=== PATIENT | female | born 2000 | race Caucasian/White ===

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

== ENCOUNTER 2022-08-29 16:08 | Outpatient (REF) | payer MEDICAID, SELFPAY ==
[2022-08-31 13:32] LABS: GC Result Negative (Negative)
[2022-08-31 13:37] LABS: Chlamydia Result Positive (Negative)
== END 2022-08-29 16:09 | disposition home or self-care (01) ==
LOC: LBN 16:08
PROVIDERS: PCP Student in an Organized Health Care Education/Training Program; Visit Provider Nurse Practitioner Women's Health
DX: Z11.3 Encounter for screening for infections with a predominantly sexual mode of transmission (principal)
CPT/HCPCS: 87491; 87591

== ENCOUNTER 2022-11-07 19:44 | Emergency (ER) | payer MEDICAID, SELFPAY ==
[2022-11-07 19:49] VITALS: BP 122/81; PULSE 109; RESP 18; TEMP 36.8; O2SAT 100
--- NOTE | 2022-11-07 20:15 | DI.CT_ITS ---
Exam(s) CT ABDOMEN PELVIS W EXAM: CT ABDOMEN PELVIS W CLINICAL HISTORY: rlq pain, eval for appe/cyst TECHNIQUE: Imaging Protocol: Axial computed tomography images with coronal and sagittal reformatted images were created and reviewed CONTRAST MATERIAL: Intravenous: Omnipaque 350 Contrast volume:100 mL Oral: No COMPARISON: CT RENAL COLIC WO CONTRAST from 02/19/2016 FINDINGS: ABDOMEN: Lung Bases: Normal where visualized. Liver: Normal density. No measurable mass. Portal, Superior Mesenteric, and Splenic Veins: Unremarkable. Gallbladder and Biliary Tract: No radiodense calculus or dilation. Pancreas: Normal density, no abnormal calcifications or inflammatory process. Spleen: Normal. Adrenals: No masses seen. Kidneys: Normal size, contour and axis. No radiodense stones or obstructive uropathy. No masses seen. Abdominal Aorta: Abdominal portion non-dilated. Bowel: No obstruction or bowel wall thickening. No evidence of appendicitis. Peritoneal Cavity: No significant ascites is seen. There is a trace amount of free fluid in the pelv is which is likely physiologic. No free air. Lymph Nodes: Within normal limits. Bones: Within normal limits for the patient's age. Soft Tissues: Unremarkable. PELVIS: Bladder: The urinary bladder is incompletely distended. There is thickening of the wall of the bladd er. This may be due to underdistention. Reproductive Organs: There are prominent parametrial vessels which can be seen with pelvic congestion syndrome. Lymph Nodes: Within normal limits. Bones: Within normal limits for the patient's age. IMPRESSION: 1. No findings to suggest acute appendicitis. 2. Prominent vessels in the pelvis raising the question of pelvic congestion syndrome. 3. Mild thickening of the wall of the urinary bladder. This may be due to underdistention however cy stitis cannot be excluded. Please correlate clinically. RADIATION DOSE DELIVERED: 1,026.6mGy.cm Total DLP DATA REPOSITORY: All CT scans at this facility are submitted to the National Radiology Data Registry (NRDR) Dose Index Registry (DIR) with the [employer] (ACR). RADIATION OPTIMIZATION: All CT scans at this facility use at least one of these dose optimization te chniques: automated exposure control; mA and/or kV adjustment per patient size (includes targeted exa ms where dose is matched to clinical indication); or iterative reconstruction.
--- NOTE | 2022-11-07 20:20 | ED.GENADUL_ITS ---
Discharge Plan Disposition Patient Disposition: Home Discharge Details Clinical Impression: Abdominal pain Clinical Impression: (Ruled Out): Patellar instability, Depression Primary Care Provider: Unknown,Unknown ED Provider: Danilo Russell Home Meds and New Rx's Prescriptions: No Action norgestimate-ethinyl estradiol [Sprintec (28)] 0.25-35 mg-mcg tablet 1 tab PO DAILY Qty: 84 3RF doxycycline monohydrate 100 mg tablet 100 mg PO BID Qty: 14 0RF Discharge Instructions Instructions: Abdominal Pain (ED) Additional Instructions: At this time your evaluation shows no evidence of appendicitis or current large ovarian cyst on your CAT scan. Please take Tylenol and Motrin as needed for pain. Please take the Zofran for nausea. Please stay well-hydrated. Monitor your symptoms closely. If you notice any worsening of your symptoms, or any new symptoms such as vomiting, diarrhea, fever, chills, shortness of breath, chest pain, numbness, weakness, or fainting , please return immediately to the emergency department for reevaluation. Please follow up with your primary care provider as soon as possible for reassessment and reevaluation. As always, it was a pleasure participating in your medical care today. Medical Decision Making 22-year-old female with no significant past medical history presents today for evaluation of abdominal pain. Patient states that pain began yesterday, he was isolated to the right lower quadrant. Sharp in nature, comes and goes in severity and with positioning, but is always present. It has been gradually worsening. She states that she did notice a very small amount of vaginal bleeding this morning, but this has been minimal. She is about 20 days since her last period. She admits to a few episodes of vomiting today secondary to pain and nausea. She denies any urinary discomfort. No diarrhea. No fever or chills. She does take control. No other complaints at this time. She denies any other vaginal discharge. Last Exam demonstrates a well-appearing female, mild to moderate right lower quadrant tenderness. Concern for potential appendicitis, more likely though I suspect she had a ruptured ovarian cyst. She does have a family history strong for ovarian cyst. Symptoms appearing consistent with torsion though. We will get a CT scan, manage the patient's pain, monitor closely and reassess. 12:14 AM Patient's laboratory work-up has returned, patient does have mild white count mild left shift but no bandemia. Lactate is only 1.6. Electrolytes stable. Urinalysis negative for infection. CT scan shows no evidence of appendicitis. There is some evidence of pelvic venous congestion. No evidence of tubo-ovarian abscess or other significant abnormality otherwise. On reassessment patient feels somewhat improved. Mild achiness still, but no signs of an acute surgical abdomen at this time. Discussed risks and benefits of prolonged observation versus discharge. Patient is requesting discharge. With no evidence of significant life-threatening surgical etiology at this time, I do feel that discharge is reasonable, however I had a long discussion with the patient and the mother for continued close monitoring, and if she had any continuation or worsening of her symptoms she would need to return immediately for reassessment. This may be the start of her menses which could be causing the pain, but with no vaginal discharge otherwise, no evidence of appendicitis, I do feel that at this time based on current clinical assessment discharge is reasonable. Discussed red flags for which to return. I have extensively reviewed the treatment plan and discharge instructions with the patient and their family. I have addressed all patient concerns at this time. The patient and family was made aware of what symptoms to monitor for that would warrant a return to the emergency department. Discussed the plan with the patient and family, they demonstrate verbal understanding and agreement with our assessment and plan at this time. The documentation in this chart was dictated using [employer] dictation software. Please excuse any dictation errors. FINDINGS: Liver: Normal. No mass. Gallbladder and bile ducts: Normal. No calcified stones. No ductal dilation. Pancreas: Normal. No ductal dilation. Spleen: Normal. No splenomegaly. Adrenal glands: Normal. No mass. Kidneys and ureters: Normal. No hydronephrosis. Stomach and bowel: Unremarkable. No obstruction. No mucosal thickening. Appendix: No evidence of appendicitis. Intraperitoneal space: Unremarkable. No free air. No significant fluid collection. Vasculature: Prominent venous structures in the bilateral pelvis. Lymph nodes: Unremarkable. No enlarged lymph nodes. Urinary bladder: Urinary bladder wall appears moderately thickened, although the bladder is not well distended. Reproductive: Unremarkable as visualized. Bones/joints: Unremarkable. No acute fracture. Soft tissues: Unremarkable. IMPRESSION: 1. Questionable bladder wall thickening raising concern for cystitis 2. Moderate findings of pelvic venous congestion. Thank you for allowing us to participate in the care of your patient. Dictated and Authenticated by: Nolberto Reece MD 11/07/2022 10:40 PM Eastern Time ([place] & [place]) HPI General Date/Time Provider Initiated Documentation: 11/07/22 20:08 . HPI Narrative: 22-year-old female with no significant past medical history presents today for evaluation of abdominal pain. Patient states that pain began yesterday, he was isolated to the right lower quadrant. Sharp in nature, comes and goes in severity and with positioning, but is always present. It has been gradually worsening. She states that she did notice a very small amount of vaginal bleeding this morning, but this has been minimal. She is about 20 days since her last period. She admits to a few episodes of vomiting today secondary to pain and nausea. She denies any urinary discomfort. No diarrhea. No fever or chills. She does take control. No other complaints at this time. She denies any other vaginal discharge. Last Related Data Home Medications Medication Instructions Recorded Confirmed norgestimate 0.25 mg-ethinyl 1 tab PO DAILY #84 tabs 08/29/22 08/29/22 estradiol 35 mcg tablet (Sprintec (28)) doxycycline monohydrate 100 mg 100 mg PO BID #14 tabs 08/31/22 tablet Previous Rx's Medication Instructions Recorded norgestimate 0.25 mg-ethinyl 1 tab PO DAILY #84 tabs 08/29/22 estradiol 35 mcg tablet (Sprintec (28)) doxycycline monohydrate 100 mg 100 mg PO BID #14 tabs 08/31/22 tablet Allergies Allergy/AdvReac Type Severity Reaction Status Date / Time cefdinir [From Omnicef] Allergy Unknown Swelling/Ed Verified 08/29/22 15:37 francisco ultra sound gel Allergy Mild rash Uncoded 08/29/22 15:37 General Stated Complaint: Abd Prob KOBI: 3 Review of Systems All systems reviewed & are unremarkable except as noted in HPI and below PFSH All Active Problems (Updated 11/07/22 @ 23:00 by Danilo Russell DO) Abdominal pain (Acute) Nexplanon removal (Acute) 10/2020 Patient desires (Acute) 10/2020. Nexplanon out. Patellar instability (Acute 06/04/14) followed by [facility]- right partial thickness ACL injury on MRI. fitted with patellofemoral brace Migraine (Acute 11/19/14) Depression (Acute 01/16/14) Anxiety (Acute 06/03/15) Medical History Closed left humeral fracture Family History Mother Ovarian cyst Endometriosis determined by laparoscopy H/O: hysterectomy Grandmother Ovarian cancer MGM Maternal Aunt Breast cancer Paternal Sister Ovarian cyst Social History Smoking/Tobacco Use Status: Former Tobacco Use Tobacco: How many years used: 1 Quit status: considering quitting Second Hand Exposure: No Smoking risk assessment performed?: Yes Alcohol Intake: never Drug use: Occasionally Substance use type: marijuana Household members: significant other, family and other Details: BF-Segundo. RUPERTO Housing: house Number of Children: 1 current occupation: Not employed Current gender identity: female Do you feel safe at home: Yes Do you feel safe in your relationship?: Yes Female Reproductive History Menstrual control method: pills History History 2 Para 1 Hx # Term Pregnancies 1 Multiple births 0 Hx # Pregnancies 0 Ectopic pregnancies 0 AB induced 0 Hx Number of Living Children 1 AB spontaneous 1 Past Pregnancies Del. Date GA/Weeks # Preg Succ Route Wgt Sex Labor Lgth Anesth esia Location [facility] 05/19/19 40 No vaginal 3685.438 g Male 12H 52M ao c Delivery Date: 05/19/19 Last Updated by: Bhumika Escalera M.D. VAVD. Male infant named RUPERTO. Formula feeding Exam Narrative Exam Narrative: 1.Const: Well-nourished, Well-developed, appearing stated age 2.Eyes: PERRL, no conjunctival injection, and symmetrical lids. 3.ENT: Atraumatic external nose and ears. Moist MM. Neck: Symmetric, trachea midline, No thyromegaly. 4.CVS: +S1/S2, No murmurs or gallops. Peripheral pulses 2+ and equal in all extremities. Brisk capillary refill in all extremities. 5.RESP: Unlabored respiratory effort. Clear to auscultation bilaterally. No wheezes rales or rhonchi 6.GI: Soft, nondistended. No guarding or rebound. Tenderness is present in the right lower quadrant. No flank or CVA tenderness. Positive right-sided psoas test. Positive obturator sign. Positive right-sided heel strike test radiating to the right. 7.MSK: Normocephalic/Atraumatic, Extremities w/o deformity or ttp No cyanosis or clubbing, Normal movement of all extremities 8.Skin: Warm, Dry. No rashes or lesions. 9.Neuro: product strategy director II-XII grossly intact. Sensation grossly intact, no focal neurologic deficits. 10.Psych: (AAO) x3. Appropriate mood and affect Course Vital Signs Vital signs: Vital Signs Temperature 36.8 C 11/07/22 19:49 Pulse 109 H 11/07/22 19:49 Respiratory Rate 18 11/07/22 19:49 Blood Pressure 122/81 11/07/22 19:49 Pulse Oximetry 100 11/07/22 19:49 Temperature 36.8 C 11/07/22 19:49 Temperature Source Temporal Artery Scan 11/07/22 19:49 Pulse 109 H 11/07/22 19:49 Respiratory Rate 18 11/07/22 19:49 Blood Pressure 122/81 11/07/22 19:49 Blood Pressure Position Sitting 11/07/22 19:49 Pulse Oximetry 100 11/07/22 19:49 Oxygen Delivery Method Room Air 11/07/22 19:49 Oxygen Flow Rate 0 11/07/22 19:49 Pain Level 7 11/07/22 19:49
[2022-11-07] MEDS: Ketorolac 15 MG/ML VIAL IVP (20:28)
[2022-11-07] MEDS: ACETAMINOPHEN 1,000 MG/100 ML BTL 400 MG IVPB (20:28)
[2022-11-07] MEDS: Ondansetron 4 MG/2 ML VIAL IVP (20:29)
[2022-11-07] MEDS: Normal Saline 1,000 ML 1000 ML IV (20:29)
[2022-11-07 20:42] LABS: Lactate 1.6 mmol/L (0.6-1.4)
[2022-11-07 20:44] LABS: Abs Immature Grans 0.08 10^3/uL (0.0-0.06); Absolute Lymphocyte Count 0.97 10^3/uL (1.2-3.4); Absolute Monocyte Count 0.84 10^3/uL (0.1-0.8); Basophils % 0.2; Eosinophils % 0.3; HCT 44.6 % (36.0-46.0); HGB 14.6 g/dL (11.2-15.7); Immature Grans % 0.4; Lymphocytes % 5.4; MCH 28.9 pg (27.0-33.0); MCHC 32.7 % (32.0-36.0); MCV 88 fL (80-95); MPV 9.8 fL (8.0-11.0); Monocytes % 4.7; Platelet Count 399 10^3/uL (130-400); RBC 5.05 10^6/uL (3.93-5.22); RDW 12.3 % (11.7-14.6); RDW-SD 39.9 fL; WBC 17.95 10^3/uL (4.4-10.8)
[2022-11-07 20:48] LABS: Absolute Basophil Count 0.04 10^3/uL (0.0-0.2); Absolute Eosinophil Count 0.05 10^3/uL (0.0-0.7); Absolute Neutrophil Count 15.98 10^3/uL (1.2-6.7)
[2022-11-07 21:01] LABS: ALT 94 U/L (14-59); AST 35 U/L (15-37); Albumin 4.1 g/dL (3.4-5.0); Alkaline Phosphatase 76 U/L (46-116); Anion Gap 10.7 mmol/L (3-11); BUN 5 mg/dL (7-18); Bilirubin, Total 0.9 mg/dL (0.2-1.0); CO2 25.3 mmol/L (21.0-32.0); CREATININE 0.7 mg/dL (0.55-1.02); Calcium 9.5 mg/dL (8.5-10.1); Chloride 105 mmol/L (98-107); Estimated GFR 125.33 (mL/min/1.73m2); Glucose 94 mg/dL (74-106); Lipase 29 U/L (16-77); Potassium 3.3 mmol/L (3.5-5.1); Sodium 141 mmol/L (136-145); Total Protein 8.5 g/dL (6.4-8.2)
[2022-11-07 21:32] LABS: Bilirubin Negative (Negative); Blood Moderate (Negative); Clarity Clear (Clear); Glucose Negative (Negative); Ketones 40 mg/dL (Negative); Leukocyte Esterase Negative (Negative); Nitrite Negative (Negative); Urobilinogen 0.2 mg/dL (Up to 0.2); pH 5.5 (5-8)
[2022-11-07] MEDS: Normal Saline - Diluent 50 ML VIAL IJ (21:33)
[2022-11-07] MEDS: Omnipaque 350 MG/ML 100 ML BTL IJ (21:34)
[2022-11-07 21:58] VITALS: O2SAT 100
[2022-11-07 21:58] LABS: Bacteria Negative HPF (Negative); C & S Indicated? No; Crystals Negative HPF (Negative); Epithelial Cells Moderate HPF (Negative); Mucus Moderate (Negative); WBC 0-2 HPF (0-5)
--- NOTE | 2022-11-07 22:40 | DI.VRAD_ITS ---
PROCEDURE INFORMATION: Exam: CT Abdomen And Pelvis With Contrast Exam date and time: 11/07/2022 9:38 PM Age: 22 years old Clinical indication: Other: Rlq pain, eval for appe/cyst TECHNIQUE: Imaging protocol: Computed tomography of the abdomen and pelvis with contrast. Contrast material: 350; Contrast volume: 100 ml; Contrast route: INTRAVENOUS (IV); COMPARISON: CT RENAL COLIC WO CONTRAST 02/19/2016 7:48 PM FINDINGS: Liver: Normal. No mass. Gallbladder and bile ducts: Normal. No calcified stones. No ductal dilation. Pancreas: Normal. No ductal dilation. Spleen: Normal. No splenomegaly. Adrenal glands: Normal. No mass. Kidneys and ureters: Normal. No hydronephrosis. Stomach and bowel: Unremarkable. No obstruction. No mucosal thickening. Appendix: No evidence of appendicitis. Intraperitoneal space: Unremarkable. No free air. No significant fluid collection. Vasculature: Prominent venous structures in the bilateral pelvis. Lymph nodes: Unremarkable. No enlarged lymph nodes. Urinary bladder: Urinary bladder wall appears moderately thickened, although the bladder is not well distended. Reproductive: Unremarkable as visualized. Bones/joints: Unremarkable. No acute fracture. Soft tissues: Unremarkable. IMPRESSION: 1. Questionable bladder wall thickening raising concern for cystitis 2. Moderate findings of pelvic venous congestion. Dictated and Authenticated by: Nolberto Reece MD. Ordering:LUISA Carrasco MD
[2022-11-07] MEDS: Ondansetron O.D.T. 4 MG TABEF, 3 TABS/BTL PO (23:13)
== END 2022-11-07 23:32 | disposition home or self-care (01) ==
PROVIDERS: Emergency Provider Student in an Organized Health Care Education/Training Program
DX: R11.10 Vomiting, unspecified (principal); R10.31 Right lower quadrant pain; Z87.891 Personal history of nicotine dependence
CPT/HCPCS: 80053; 81025; 83690; 96365; 96375; 99285; 74177; 81003; 81015; 83605; 85025; 99284; J0131; J1885; J2405; J3490

== ENCOUNTER 2023-01-26 17:08 | Emergency (ER) | payer MEDICAID, SELFPAY ==
[2023-01-26] VITALS (9 sets, daily range): BP systolic 122–123; BP diastolic 70–92; PULSE 79–87; RESP 18; TEMP 37; O2SAT 97–100
[2023-01-26] MEDS: Lactated Ringers 1,000 ML 1000 ML IV (17:45)
[2023-01-26] MEDS: Pantoprazole 40 MG VIAL IVP (17:46)
[2023-01-26] MEDS: FAMOTIDINE 20 MG in Normal Saline 100 ML 400 MG IVPB (17:46)
[2023-01-26] MEDS: Metoclopramide 10 MG/2 ML VIAL 5 MG IVP (17:46)
[2023-01-26 17:54] LABS: Abs Immature Grans 0.05 10^3/uL (0.0-0.06); Absolute Basophil Count 0.04 10^3/uL (0.0-0.2); Absolute Eosinophil Count 0.08 10^3/uL (0.0-0.7); Absolute Lymphocyte Count 1.14 10^3/uL (1.2-3.4); Absolute Neutrophil Count 8.43 10^3/uL (1.2-6.7); Basophils % 0.4; Eosinophils % 0.8; HCT 39.2 % (36.0-46.0); HGB 12.9 g/dL (11.2-15.7); Immature Grans % 0.5; MCHC 32.9 % (32.0-36.0); MCV 88 fL (80-95); MPV 9.5 fL (8.0-11.0); Monocytes % 5.8; Neutrophils % 81.5; Platelet Count 344 10^3/uL (130-400); RBC 4.45 10^6/uL (3.93-5.22); RDW 12.9 % (11.7-14.6); RDW-SD 41.8 fL; WBC 10.34 10^3/uL (4.4-10.8)
[2023-01-26 18:07] LABS: ALT 28 U/L (14-59); AST 16 U/L (15-37); Albumin 3.7 g/dL (3.4-5.0); Alkaline Phosphatase 60 U/L (46-116); Anion Gap 10.1 mmol/L (3-11); BUN 8 mg/dL (7-18); Bilirubin, Total 0.4 mg/dL (0.2-1.0); CO2 26.9 mmol/L (21.0-32.0); CREATININE 0.7 mg/dL (0.55-1.02); Calcium 9.2 mg/dL (8.5-10.1); Chloride 104 mmol/L (98-107); Estimated GFR 125.33 (mL/min/1.73m2); Glucose 101 mg/dL (74-106); Lipase 23 U/L (16-77); Magnesium 1.9 mg/dL (1.8-2.4); Potassium 3.3 mmol/L (3.5-5.1); Sodium 141 mmol/L (136-145); Total Protein 7.4 g/dL (6.4-8.2)
[2023-01-26 18:53] LABS: Bilirubin Negative (Negative); Blood Negative (Negative); Clarity Clear (Clear); Glucose Negative (Negative); Ketones Trace mg/dL (Negative); Leukocyte Esterase Negative (Negative); Nitrite Negative (Negative); Specific Gravity 1.025 (1.005-1.025); Urobilinogen 0.2 mg/dL (Up to 0.2)
[2023-01-26 18:59] LABS: Bacteria Few HPF (Negative); Crystals Negative HPF (Negative); Epithelial Cells Few HPF (Negative); Mucus Moderate (Negative); RBC 0-2 HPF (0-2)
[2023-01-26 19:00] LABS: C & S Indicated? Yes; Casts Negative LPF (Negative)
--- NOTE | 2023-01-26 19:18 | DI.RAD_ITS ---
Exam(s) XR ABDOMEN FLAT UPRIGHT EXAM: 2D digital imaging was performed. CLINICAL HISTORY: abdominal pain. COMPARISON: No exams were available for comparison TECHNIQUE: Supine and uprightSupine and Lateral views of the abdomen was performed. Images were o btained. FINDINGS: LUNG BASES: Clear. BOWEL GAS PATTERN: Nondistended. FREE AIR: None. CALCIFICATIONS: No radiopaque calcifications. OSSEOUS STRUCTURES: Normal for age. OTHER FINDINGS: None. IMPRESSION: No evidence of an acute abdomen. DATA REPOSITORY: RADIATION DOSE DELIVERED:
--- NOTE | 2023-01-26 19:42 | DI.VRAD_ITS ---
PROCEDURE INFORMATION: Exam: XR Abdomen Exam date and time: 01/26/2023 7:14 PM Age: 22 years old Clinical indication: Generalized; Patient HX: Abdominal pain, vomiting TECHNIQUE: Imaging protocol: Radiologic exam of the abdomen. Views: 2 Views. Upright and supine views. COMPARISON: CT ABDOMEN PELVIS W 11/07/2022 9:38 PM FINDINGS: Gastrointestinal tract: No dilated bowel.. Intraperitoneal space: Normal. No free air. Bones/joints: Unremarkable for age. IMPRESSION: No dilated bowel.. Dictated and Authenticated by: Leanna Wise MD. Ordering:IRISH Giles MD
--- NOTE | 2023-01-26 20:13 | NUR.NOTE ---
Referral made per Tisha Gallegos to establish care with a PCP whenever the next appt is available. A referral was also made for an endoscopy with surgery in one month. Put both the referrals on the care management's list for follow up assistance.Nursing Note:
--- NOTE | 2023-01-26 21:22 | ED.GENADUL_ITS ---
Discharge Plan Disposition Patient Disposition: Home Discharge Details Clinical Impression: Gastritis Primary Care Provider: None,None ED Provider: Tisha Gallegos Home Meds and New Rx's Prescriptions: New sucralfate [Carafate] 100 mg/mL suspension 5 ml PO QID Qty: 1000 0RF Rx Instructions: swish in mouth and swallow; use after food/drink ondansetron 4 mg tablet,disintegrating 4 mg PO Q6H 10 Days Qty: 12 0RF Continued norgestimate-ethinyl estradiol [Sprintec (28)] 0.25-35 mg-mcg tablet 1 tab PO DAILY Qty: 84 3RF Discharge Instructions Instructions: Gastritis (ED) Additional Instructions: Take Prilosec and Pepcid daily for the next 2 weeks, then continue just the Prilosec Take the Carafate as prescribed, stay away from tomatoes, orange, spicy, and caffeinated beverages for the next several weeks Establish care with a primary care physician and follow-up with gastroenterology, have placed referrals for both Please return earlier should he have new or worsening complaints I also written a prescription for antinausea medication which she may take as needed, try to have small frequent meals Discharge Data Discharge Date/Time-TO BE ENTERED AT DEPARTURE: 01/26/23 19:59 Medical Decision Making 22-year-old female presenting with report of epigastric pain and nausea and vomiting for the past few months. Worse today or send patient presents. Denies chance of , labs reassuring, potassium 3.3, will supplement at home Benign abdominal exam, nonspecific tenderness, no rebound or guarding, alert and oriented, moist mucous membranes, no visible sign of trauma rashes or lesions Able to tolerate p.o. at time of reassessment, feeling improvement X-ray does not show evidence of air-fluid levels or obvious obstruction Referrals for endoscopies supplied Negative test Return precautions reviewed and patient expressed understanding Urinalysis without evidence of obvious infection HPI General Date/Time Provider Initiated Documentation: 01/26/23 17:10 . HPI Narrative: This 22-year-old female presents with a stomach pain for the past few months. States that she has been having epigastric discomfort and has been unable to hold down meals for the past several months. Denies any association with medications. States that tomatoes usually precipitate symptoms. Denies fever or chills. Denies chance of . Denies any diarrhea. States that fluids occasionally cause her symptoms. States she is vomited 3 times today. Related Data Home Medications Medication Instructions Recorded Confirmed norgestimate 0.25 mg-ethinyl 1 tab PO DAILY #84 tabs 08/29/22 01/26/23 estradiol 35 mcg tablet (Sprintec (28)) ondansetron 4 mg disintegrating 4 mg PO Q6H 10 days #12 tabs 01/26/23 tablet sucralfate 100 mg/mL oral 5 ml PO QID #1,000 mL 01/26/23 suspension (Carafate) Previous Rx's Medication Instructions Recorded norgestimate 0.25 mg-ethinyl 1 tab PO DAILY #84 tabs 08/29/22 estradiol 35 mcg tablet (Sprintec (28)) ondansetron 4 mg disintegrating 4 mg PO Q6H 10 days #12 tabs 01/26/23 tablet sucralfate 100 mg/mL oral 5 ml PO QID #1,000 mL 01/26/23 suspension (Carafate) Allergies Allergy/AdvReac Type Severity Reaction Status Date / Time cefdinir [From Omnicef] Allergy Unknown Swelling/Ed Verified 01/26/23 17:13 francisco ultra sound gel Allergy Mild rash Uncoded 01/26/23 17:13 General Stated Complaint: Abd Prob KOBI: 3 PFSH All Active Problems (Updated 01/26/23 @ 19:51 by MATTY Aparicio) Gastritis (Acute) Nexplanon removal (Acute) 10/2020 Patient desires (Acute) 10/2020. Nexplanon out. Patellar instability (Acute 06/04/14) followed by [facility]- right partial thickness ACL injury on MRI. fitted with patellofemoral brace Migraine (Acute 11/19/14) Depression (Acute 01/16/14) Anxiety (Acute 06/03/15) Medical History Closed left humeral fracture Family History Mother Ovarian cyst Endometriosis determined by laparoscopy H/O: hysterectomy Grandmother Ovarian cancer MGM Maternal Aunt Breast cancer Paternal Sister Ovarian cyst Social History (Reviewed 11/07/22 @ 20:22 by MALINI Richardson Smoking/Tobacco Use Status: Current every day Tobacco Type: e-cigarettes Tobacco: How many years used: 1 Quit status: considering quitting Second Hand Exposure: No Smoking risk assessment performed?: Yes Alcohol Intake: never Drug use: Occasionally Substance use type: marijuana Details: states uses marijuana when anxiety acts up once in a great while. Household members: significant other, family and other Details: BF-Segundo. Infant RUPERTO Housing: house Number of Children: 1 current occupation: Not employed Current gender identity: female Do you feel safe at home: Yes Do you feel safe in your relationship?: Yes Female Reproductive History Menstrual control method: pills History History 2 Para 1 Hx # Term Pregnancies 1 Multiple births 0 Hx # Pregnancies 0 Ectopic pregnancies 0 AB induced 0 Hx Number of Living Children 1 AB spontaneous 1 Past Pregnancies Del. Date GA/Weeks # Preg Succ Route Wgt Sex Labor Lgth Anesth esia Location [facility] 05/19/19 40 No vaginal 3685.438 g Male 12H 52M ao c Delivery Date: 05/19/19 Last Updated by: Osman Ash. Male infant named RUPERTO. Formula feeding Course Vital Signs Vital signs: Vital Signs Temperature 37 C 01/26/23 17:10 Pulse 87 01/26/23 17:10 Respiratory Rate 18 01/26/23 17:10 Blood Pressure 122/70 01/26/23 17:10 Pulse Oximetry 99 01/26/23 17:10 Temperature 37 C 01/26/23 17:10 Temperature Source Skin 01/26/23 17:10 Pulse 79 01/26/23 17:32 Respiratory Rate 18 01/26/23 17:10 Respiratory Effort Normal, Non-Labored 01/26/23 17:14 Blood Pressure 123/92 H 01/26/23 17:32 Blood Pressure Mean 100 01/26/23 17:32 Blood Pressure Position Sitting 01/26/23 17:10 Pulse Oximetry 99 01/26/23 18:20 Oxygen Delivery Method Room Air 01/26/23 17:10 Oxygen Flow Rate 0 01/26/23 17:10 Pain Level 2 01/26/23 19:58 Lab/Test Results Lab/Test Results: 01/26/23 18:30 Urine - Reflex from Ua Urine Culture - Pending Laboratory Tests Range/Units 01/26/23 01/26/23 17:36 18:30 WBC (4.4-10.8) 10^3/uL 10.34 RBC (3.93-5.22) 10^6/uL 4.45 Hgb (11.2-15.7) g/dL 12.9 Hct (36.0-46.0) % 39.2 MCV (80-95) fL 88 MCH (27.0-33.0) pg 29.0 MCHC (32.0-36.0) % 32.9 RDW (11.7-14.6) % 12.9 Plt Count (130-400) 10^3/uL 344 MPV (8.0-11.0) fL 9.5 Immature Gran % 0.5 Neutrophils % 81.5 Lymphocytes % 11.0 Monocytes % 5.8 Eosinophils % 0.8 Basophils % 0.4 Nucleated RBC % (0.0-0.3) % 0.0 Absolute Neutrophils (1.2-6.7) 10^3/uL 8.43 H Absolute Lymphocytes (1.2-3.4) 10^3/uL 1.14 L Absolute Monocytes (0.1-0.8) 10^3/uL 0.60 Absolute Eosinophils (0.0-0.7) 10^3/uL 0.08 Absolute Basophils (0.0-0.2) 10^3/uL 0.04 Sodium (136-145) mmol/L 141 Potassium (3.5-5.1) mmol/L 3.3 L Chloride (98-107) mmol/L 104 Carbon Dioxide (21.0-32.0) mmol/L 26.9 Anion Gap (3-11) mmol/L 10.1 BUN (7-18) mg/dL 8 Creatinine (0.55-1.02) mg/dL 0.7 Est GFR (CKD-EPI 2020) (mL/min/1.73m2) 125.33 Glucose (74-106) mg/dL 101 Calcium (8.5-10.1) mg/dL 9.2 Magnesium (1.8-2.4) mg/dL 1.9 Total Bilirubin (0.2-1.0) mg/dL 0.4 AST (15-37) U/L 16 ALT (14-59) U/L 28 Alkaline Phosphatase (46-116) U/L 60 Total Protein (6.4-8.2) g/dL 7.4 Albumin (3.4-5.0) g/dL 3.7 Lipase (16-77) U/L 23 Urine Color (Yellow) Yellow Urine Clarity (Clear) Clear Urine pH (5-8) 7.0 Ur Specific [place] (1.005-1.025) 1.025 Urine Protein (Negative) mg/dL Trace H Urine Ketones (Negative) mg/dL Trace H Urine Blood (Negative) Negative Urine Nitrite (Negative) Negative Urine Bilirubin (Negative) Negative Urine Urobilinogen (Up to 0.2) mg/dL 0.2 Ur Leukocyte Esterase (Negative) Negative Urine RBC (0-2) HPF 0-2 Urine WBC (0-5) HPF 5-10 Ur Epithelial Cells (Negative) HPF Few Urine Crystals (Negative) HPF Negative Urine Bacteria (Negative) HPF Few Urine Casts (Negative) LPF Negative Urine Mucus (Negative) Moderate Ur Culture Indicated? Yes Urine Glucose (Negative) mg/dL Negative POC- Test(urine) Negative
== END 2023-01-26 19:59 | disposition home or self-care (01) ==
PROVIDERS: Emergency Provider Physician Assistant
DX: K29.70 Gastritis, unspecified, without bleeding (principal); F17.290 Nicotine dependence, other tobacco product, uncomplicated
CPT/HCPCS: 80053; 81025; 83690; 96361; 96374; 96375; 99283; 74019; 81003; 81015; 83735; 85025; 87086; J2765

== ENCOUNTER 2023-01-29 21:31 | Outpatient (REF) | payer MEDICAID, SELFPAY ==
[2023-01-31 15:29] LABS: Chlamydia Result Negative (Negative); GC Result Negative (Negative)
== END 2023-01-29 21:32 | disposition home or self-care (01) ==
LOC: NCHCN 21:31
PROVIDERS: Visit Provider Physician Assistant
DX: Z11.3 Encounter for screening for infections with a predominantly sexual mode of transmission (principal)
CPT/HCPCS: 87491; 87591

== ENCOUNTER 2024-08-11 14:22 | Outpatient (REF) | payer MEDICAID, SELFPAY ==
--- NOTE | 2024-08-11 14:00 | PAPFT_PTH ---
PATIENT: Rose Martinez LOC: [facility] U#:[id number] AGE/SX: 24/F ROOM: RE08/11/[address]: Lilian Morillo CNM : 2000 BED: DIS: 08/11/2024 SPEC #: [id number] RECD: 08/11/24 18:09 STATUS: OMID REQ #: [id number] GREGORIO: 08/11/24 14:[address]: Lilian Morillo DEPT: [facility] Cytology RECD BY: Tisha Cruz ENTERED: 08/11/24 18:09 SP TYPE: PAPFT OTHR DR: Unknown,Unknown Tissues: 1 - CX/ENDOCX FOR PAP SMEARS Procedures: PAP THIN PREP/[facility] Screening HPV DNA PROBE Comments: [id number] (HPV 16 & 18/45) (CHLAMYDIA/GC)
[2024-08-12 12:18] LABS: Chlamydia Result Negative (Negative); GC Result Negative (Negative)
== END 2024-08-11 14:23 | disposition home or self-care (01) ==
LOC: LBN 14:22
PROVIDERS: Visit Provider Advanced Practice Midwife
DX: Z12.4 Encounter for screening for malignant neoplasm of cervix (principal)
CPT/HCPCS: 87491; 87591; 88142; 87624